=== PATIENT | female | born 1940 | race Caucasian/White ===

== ENCOUNTER 2024-09-29 12:25 | Outpatient (CLI) | payer MEDICARE, MEDICAID ==
--- NOTE | 2024-09-29 16:37 | RADIOLOGY REPORT ---
PROCEDURE: MR MRI LUMBAR SPINE INDICATION: SPINAL STENOSIS, LUMBOSACR 84-year-old female with back pain, hip pain, restless legs. Exam Date: 09/29/2024 02:09 PM COMPARISON: Comparison is made with report of noncontrast CT scan of the lumbar spine dated , although those images were not made available on the PAC system for viewing. TECHNIQUE: MRI lumbar spine with and without intravenous contrast utilizing 15 mL clariscan gadoliniu m contrast. FINDINGS: No fractures are identified about the lumbar spine. There is grade 1 anterolisthesis L4 on L5 measuri ng 3 mm AP, without evidence of spondylolysis. There is degenerative disc disease and facet arthropat hy with narrowing of the AP dimension of the spinal canal to 4.3 mm at L3-L4 and 5 mm at L4-L5. There is partial effacement of the lateral recesses the L3-L4 and L4-L5 levels. There is significant neura l foraminal stenosis at L3-L4 and L4-L5 on the right. The conus terminates at L2. There are multiple metastatic lesions throughout the visualized bony structures, including T10, T12, L1, L3, L4, and L5 vertebral bodies; metastatic disease in the posterior elements at the T10, L2, L3, and L4 levels; and multiple additional lesions involving the partially visualized sacrum and bilater al iliac bones. IMPRESSION: 1. No fracture of the lumbar spine. 2. Degenerative disc disease and facet arthropathy with moderate to severe spinal canal stenosis at L 3-L4 and L4-L5. Recommend spinal surgery consultation if not already obtained. 3. Significant neural foraminal stenosis on the right at L3-L4 and L4-L5; partial effacement of the l ateral recesses bilaterally at the L3-L4 and L4-L5 levels. These findings may correspond to lower ex tremity radicular symptoms in the bilateral L4 and L5 nerve root distributions. 4. 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 I have no history of primary malignancy for this patient.
[2024-09-29] MEDS ORDERED: GADOTERATE MEGLUMINE 7.5 MMOL/15 ML VIAL IV ONE (17:37)
== END 2024-09-29 23:59 | disposition home or self-care (01) ==
LOC: MRI 12:25
PROVIDERS: ATTEND Family Medicine
DX: M51.369 Other intervertebral disc degeneration, lumbar region without mention of lumbar back pain or lower extremity pain (principal); M48.07 Spinal stenosis, lumbosacral region; M43.16 Spondylolisthesis, lumbar region; M48.061 Spinal stenosis, lumbar region without neurogenic claudication
CPT/HCPCS: 72158; A9575